=== PATIENT | female | born 1985 | race Caucasian/White ===

== ENCOUNTER 2017-07-14 12:41 | Inpatient (IN) ==
[2017-07-17] MEDS ORDERED: CARBOPROST 250 MCG/ML INJECTION IM PRN (16:10)
[2017-07-17] MEDS ORDERED: ACETAMINOPHEN 500 MG TABLET PO PRN (16:10)
[2017-07-17] MEDS ORDERED: SALINE FLUSH 10ml SYRINGE IV PRN (16:10)
[2017-07-17] MEDS ORDERED: TERBUTALINE 1 MG/ML VIAL SQ PRN (16:10)
[2017-07-17] MEDS ORDERED: METHYLERGONOVINE 0.2 MG/ML INJECTION IM PRN (16:10)
[2017-07-17] MEDS ORDERED: MAG-AL + SIM ORAL LIQUID 30ml PO PRN (16:10)
[2017-07-17] MEDS ORDERED: CALCIUM CARBONATE Chewable 500mg TABLET PO PRN (16:10)
[2017-07-17] MEDS ORDERED: DINOPROSTONE 10 MG VAGINAL INSERT VG ONE (16:10)
[2017-07-17] MEDS ORDERED: LIDOCAINE 1% (10mg/ml) 2mL INJ PF SDV ID PRN (16:10)
--- OUTSIDE RECORDS SUMMARY | 2017-07-17 16:11 | External Medical Summary | Clinical Summary ---
:1985 Author Organization [facility] Address [address] [address] Care Team Providers Name Role Phone Chelsy Escalona LILIA Primary Care Provider Allergies No Known Allergies Current Medications Prescription Sig. Disp. Refills Start Date End Date Status hydrocodone-acetaminoph Take 1 tablet by Active en (LORTAB) 5-500 MG mouth every 6 per tabletIndications: (six) hours as Pain needed. Indications: Pain Ondansetron 4 MG FILM Take 4 mg by 10 tablet 1 02/14/2011 Active mouth 3 (three) times daily. .Verify Clinic Meds verify clinic 0 09/04/2012 Active (MEDICATION LIST NOT meds IMPORTED) multivitamin Take 1 tablet by Active ( PLUS) 27-1 MG mouth daily. TABS Active Problems Problem Noted Date 03/25/2017 Currently Estimated Date of Delivery Comments Yes 07/04/2017 Based on Other Basis Encounters Date Type Specialty Care Team Description 06/10/2017 Hospital Encounter Eyal Salas MD from Last 3 Months Family History Medical History Relation Name Comments Other Other Mother - DM Other Other Father - DM Relation Name Status Comments Father Alive Mother Alive Other Other Social History Tobacco Use Types Packs/Day Years Used Date Never Smoker Smokeless Tobacco: Never Used Alcohol Use Drinks/Week oz/Week Comments No Currently Estimated Date of Delivery Comments Yes 07/04/2017 Based on Other Basis Sex Assigned at Date Recorded Not on file Last Filed Vital Signs Vital Sign Reading Time Taken Blood Pressure 103/65 03/25/2017 6:46 PM INSULATION MANAGER Pulse 102 03/25/2017 6:46 PM INSULATION MANAGER Temperature 37.2 C (98.9 F) 03/25/2017 6:46 PM INSULATION MANAGER Respiratory Rate 18 03/25/2017 6:46 PM INSULATION MANAGER Oxygen Saturation 100% 03/25/2017 6:46 PM INSULATION MANAGER Inhaled Oxygen Concentration - - Weight 59 kg (130 lb) 03/25/2017 6:49 PM INSULATION MANAGER Height 144.8 cm (4' 9") 03/25/2017 6:49 PM INSULATION MANAGER Body Mass Index 28.13 03/25/2017 6:49 PM INSULATION MANAGER Plan of Treatment Health Maintenance Due Date Last Done Comments Varicella Vaccines (1 of 2 - 2 Dose Adolescent Series) 01/01/1997 DTaP,Tdap,and Td Vaccines (1 - Tdap) 01/01/2003 CERVICAL CANCER SCREENING 01/01/2005 Influenza Vaccine (Season Ended) 2017 01/30/2010 Results Not on filefrom Last 3 Months
--- OUTSIDE RECORDS SUMMARY | 2017-07-17 16:12 | External Medical Summary | Encounter Summary ---
:1985 Author Organization [facility] Address [address] [place] [address] Care Team Providers Name Role Phone Chelsy Escalona LILIA Primary Care Provider Reason for Visit Auth/Cert Status Reason Specialty Diagnoses / Procedures Referred By Contact Referred To Contact Diagnoses EDC 0517 severe cramping Encounter Details Date Type Department Care Team Description 06/10/2017 Hospital Encounter [facility] Eyal Salas MD [address] [id number] [place] [address] [place], [place] [id number] Social History Tobacco Use Types Packs/Day Years Used Date Never Smoker Smokeless Tobacco: Never Used Alcohol Use Drinks/Week oz/Week Comments No Sex Assigned at Date Recorded Not on file as of this encounter Medications at Time of Discharge Medication Sig. Disp. Refills Start Date End Date .Verify Clinic Meds verify clinic meds 0 09/04/2012 (MEDICATION LIST NOT IMPORTED) hydrocodone-acetaminophen Take 1 tablet by (LORTAB) 5-500 MG per mouth every 6 (six) tabletIndications: Pain hours as needed. Indications: Pain Ondansetron 4 MG FILM Take 4 mg by mouth 3 10 tablet 1 02/14/2011 (three) times daily. multivitamin Take 1 tablet by ( PLUS) 27-1 MG mouth daily. TABS as of this encounter Plan of Treatment Not on fileas of this encounter Visit Diagnoses Not on filein this encounter Admitting Diagnoses Diagnosis EDC 0517 severe cramping
--- OUTSIDE RECORDS SUMMARY | 2017-07-17 16:12 | External Medical Summary | Clinical Summary ---
:1985 Author Organization [facility] Address [address] [place] [address] Care Team Providers Name Role Phone Chelsy Escalona Primary Care Provider Juancho Crowe MD Unavailable Judy Carlson MD Unavailable Unavailable Hallie Ramos MD Unavailable Source Comments Some departments are not documenting in the electronic medical record. If you do not see the information that you expected, contact Release of Information in the Health Information Management department at [phone] for further assistance in locating additional records.[facility] Allergies No Known Allergies Current Medications Prescription Sig. Disp. Refills Start Date End Date Status MAG HYDROX/AL HYDROX/SIMETH Take by mouth. Active (MAALOX PO) OMEPRAZOLE MAGNESIUM Take by mouth. Active (PRILOSEC OTC PO) ACETAMINOPHEN (TYLENOL PO) Take 2 Tabs by Active mouth. Social History Tobacco Use Types Packs/Day Years Used Date Former Smoker Smokeless Tobacco: Never Used Alcohol Use Drinks/Week oz/Week Comments No Sex Assigned at Date Recorded Not on file Last Filed Vital Signs Vital Sign Reading Time Taken Blood Pressure 98/62 07/10/2011 3:07 PM CDT Pulse 70 07/10/2011 3:00 PM CDT Temperature 37.1 C (98.8 F) 07/10/2011 1:15 PM CDT Respiratory Rate - - Oxygen Saturation 100% 07/10/2011 3:07 PM CDT Inhaled Oxygen Concentration - - Weight 57.2 kg (126 lb) 07/10/2011 1:19 PM CDT Height 147.3 cm (4' 10") 07/10/2011 1:19 PM CDT Body Mass Index 26.33 07/10/2011 1:19 PM CDT Plan of Treatment Health Maintenance Due Date Last Done Comments PHYSICAL (COMPREHENSIVE) EXAM 01/01/1991 PERTUSSIS VACCINE 01/01/1995 HIV SCREENING 01/01/1999 TETANUS VACCINE 01/01/2001 CERVICAL CANCER SCREENING 01/01/2014 INFLUENZA VACCINE 12/15/2017
[2017-07-17] MEDS ORDERED: OXYTOCIN DRIP 30 UNIT/500 ML ML IV PRN (16:43)
[2017-07-17] MEDS: D5LR 1,000 ML IV PRN (17:22)
[2017-07-17] MEDS: LR 1,000 ML IV PRN ×2 (17:22→21:20)
[2017-07-17 17:37] VITALS: BMI 30.3
[2017-07-17] MEDS: BUTORPHANOL 2 MG/ML INJECTION IVP PRN (17:49)
[2017-07-18] MEDS ORDERED: ONDANSETRON 4 MG/2 ML INJECTION IVP PRN ×2 (00:13→05:27)
[2017-07-18] MEDS: LR 1,000 ML IV PRN ×2 (00:17→05:34)
[2017-07-18] MEDS: D5LR 1,000 ML IV PRN (01:58)
[2017-07-18] MEDS: BUTORPHANOL 2 MG/ML INJECTION IVP PRN (01:59)
--- NOTE | 2017-07-18 05:20 | Anesthesia Preoperative Report ---
Anesthesia Epidural/Spinal Rec - Date and Time Date: 07/18/17 Preoperative Diagnosis: Active Labor Procedure: Labor Epidural Plan: Epidural - Vital Signs Vital Signs: Respiratory Rate 18 07/17/17 17:49 /Para: P:0 Heart Rate: 125 Height and Weight: 57 inches - Medictaions & Allergies Inpatient Medications: Current Medications Acetaminophen (Tylenol 500 Mg) 500 - 1,000 mg PO Q4H PRN PRN Reason: Pain Al Hydroxide/Mg Hydroxide (Maalox Plus) 30 ml PO Q3H PRN PRN Reason: Indigestion Butorphanol Tartrate (Stadol Inj) 1 mg IVP Q4H PRN Last Admin: 07/18/17 01:59 Dose: 1 mg Calcium Carbonate (Tums) 500 - 1,000 mg PO Q2H PRN PRN Reason: Indigestion Carboprost Tromethamine (Hemabate) 250 mcg IM O PRN PRN Reason: .Downtime Lactated Ringer's (Lactated Ringers) 1,000 mls @ 999 mls/hr IV .Q1H1M PRN Last Admin: 07/18/17 00:17 Dose: 999 mls/hr Dextrose/Lactated Ringer's (Dextrose 5%-Lactated Ringers) 1,000 mls @ 125 mls/ hr IV .Q8H PRN PRN Reason: Labor Last Admin: 07/18/17 01:58 Dose: 125 mls/hr Oxytocin (Pitocin Drip) 30 unit in 500 mls @ 2 mls/hr IV .Q24H PRN; Protocol PRN Reason: Induction/Augmentation Last Admin: 07/17/17 17:22 Dose: 2 mls/hr Lidocaine HCl (Xylocaine-Mpf 1% Vial) 0.2 mg ID O PRN PRN Reason: IV Start Methylergonovine Maleate (Methergine) 0.2 mg IM O PRN Misoprostol (Cytotec) 800 mcg DE ONCE PRN Ondansetron HCl (Zofran) 4 mg IVP Q4H PRN PRN Reason: Nausea &/or vomiting Last Admin: 07/18/17 00:17 Dose: 4 mg Allergies/Adverse Reactions: Allergies Allergy/AdvReac Type Severity Reaction Status Date / Time latex Allergy Mild Rash Verified 07/01/17 15:16 - Home Medications Home Medications: Home Medications Medication Instructions Recorded Confirmed Type Pantoprazole Tab 1 tab PO DAILY 03/29/17 History Vits #93/Iron Fum/FA 1 each PO 03/29/17 History [ Formula Tablet] - Medical History Other History: Reports: Now - Surgical History GI Surgery/Treatments: Reports: Cholecystectomy, Other (exploratory scope done ) Anesthesia Reactions: None Hx Family Anesthesia Reaction: No History of Motion Sickness: No - Social History Smoking Status: Never smoker Second Hand Exposure: No Alcohol Intake Frequency: does not drink Hx Chewing Tobacco Use: No - Pertinent Findings Lab Data: CBC and BMP 07/17/17 16:27 - Physical Exam Respiratory Exam: lungs clear Cardiovascular Exam: regular rate and rhythm - Airway Assessment Mallampati Score: II TMD: 3 Fingerbreadths Neck Extension: good Overall Assessment: no airway concerns - ASA ASA Score: 2 - Discussion Discussion: Discussed risks/options/alternatives of anesthesia and questions answered. Patient consents. Nursing pain assessment noted. Anesthesia Discussion: spouse ( ) Attestation Statement: Prior to the delivery of any anesthetic medication, I examined the patient, developed the plan, obtained the patient's consent and discussed the risk and benefits of the procedure with the patient/guardian.
[2017-07-18] MEDS ORDERED: DiphenhydrAMINE 50 MG/ML INJECTION IVP PRN (05:27)
[2017-07-18] MEDS ORDERED: ROPIVACAINE 1% 10MG/ML INJ 200 MG, SUFentanil 50 MCG in NS 100 ML EPI PRN (05:27)
[2017-07-18] MEDS ORDERED: NALOXONE 0.4 MG/ML INJECTION IVP PRN (05:27)
[2017-07-18] MEDS ORDERED: AZITHROMYCIN IV 500 MG in NS 250ml 250 ML IV ONE (06:24)
[2017-07-18] MEDS ORDERED: CITRIC ACID/SODIUM CITRATE 30ml PO ONE (06:24)
[2017-07-18] MEDS ORDERED: FAMOTIDINE PB 20 MG/50 ML BAG IV ONE (06:24)
[2017-07-18] MEDS ORDERED: NOZIN NASAL SWAB NAS ONE (06:24)
[2017-07-18] MEDS ORDERED: CEFAZOLIN PREMIX (MC ONLY) 2 GM/50 ML BAG IV ONE (06:24)
[2017-07-18] MEDS ORDERED: LIDOCAINE 2%/EPI 1:200,000 20ml SDV PF ONE (06:46)
[2017-07-18] MEDS ORDERED: PHENYLEPHRINE INJ 10 MG/ML VIAL IV ONE (06:52)
[2017-07-18] MEDS ORDERED: SALINE FLUSH 10ml SYRINGE ONE (06:53)
[2017-07-18] MEDS ORDERED: ONDANSETRON 4 MG/2 ML INJECTION ONE (06:56)
[2017-07-18] MEDS ORDERED: MORPHINE SULFATE PF 5mg/10ml INJ (Duramorph) ONE (07:00)
[2017-07-18] MEDS: OXYTOCIN BOLUS BAG 30 UNIT/500 ML ML IV SCH ×2 (07:06→07:27)
[2017-07-18] MEDS ORDERED: MIDAZOLAM 2mg/2ml INJECTION ONE (07:12)
[2017-07-18] MEDS ORDERED: PROPOFOL 20 ML ONE (07:16)
[2017-07-18] MEDS ORDERED: MEASLES-MUMPS-RUBELLA VACCINE 0.5ml INJECTION SQ ONE (07:54)
[2017-07-18] MEDS ORDERED: SIMETHICONE 80 MG CHEWABLE TABLET PO PRN (07:54)
[2017-07-18] MEDS ORDERED: RHOPHYLAC - PHARMACY CONSULT MC ONE (07:54)
[2017-07-18] MEDS ORDERED: DiphenhydrAMINE 25 MG CAPSULE PO PRN (07:54)
[2017-07-18] MEDS ORDERED: HYDROCORTISONE 2.5% CREAM 30gm RECTALLY PRN (07:54)
--- NOTE | 2017-07-18 07:55 | Anesthesia Postoperative Note ---
- Date and Time Date: 07/18/17 Time: 07:54 - Status Patient Participated in Evaluation: Patient Participated in Person Vital Signs: Respiratory Rate 18 07/17/17 17:49 Respiratory Function: Airway Patent Cardiovascular Function: Regular Pulse Mental Status: Alert and Oriented Pain Intensity: 0 Hydration: IV Infusing Complications During Recover: None Apparent - Follow-Up Instructions Instructions: Per Surgeon
[2017-07-18] MEDS ORDERED: OXYTOCIN DRIP 30 UNIT/500 ML ML IV SCH (08:00)
[2017-07-18] MEDS: D5LR 1,000 ML IV SCH ×2 (09:32→13:47)
[2017-07-18] MEDS: IBUPROFEN 800 MG TABLET PO PRN ×2 (09:53→19:58)
[2017-07-18] MEDS: DOCUSATE CALCIUM 240 MG CAPSULE PO SCH (11:02)
[2017-07-18] MEDS: SIMETHICONE 80 MG CHEWABLE TABLET PO SCH ×3 (11:02→19:58)
--- NOTE | 2017-07-18 13:01 | Operative Note ---
DATE OF OPERATION 07/18/2017 PREOPERATIVE DIAGNOSIS 1. 32-year-old 1 at 40 weeks 4 days gestational age. 2. Arrest of dilation and descent. POSTOPERATIVE DIAGNOSIS 1. 32-year-old 1 at 40 weeks 4 days gestational age. 2. Arrest of dilation and descent. PROCEDURE Primary low transverse section. SURGEON Osiris Whitmore MD FRIT COATER Kurt Oliver MD ANESTHESIA Epidural by Luiz Alfonso, GABRIELLA COMPLICATIONS None EBL 700 mL FINDINGS Viable female infant, cephalic LOT position, clear fluids, Apgars 6/9, weight 3444 grams, name "[id number]". Normal-appearing uterus, tubes and ovaries. INDICATIONS The patient was brought in for Lopes bulb cervical ripening last evening due to being past her EDC. Her membranes were accidentally ruptured during the placement, so she was also started on Pitocin. At 10:00 p.m. last evening she was 5 cm and -2 station. She never progressed past that all night long. She finally received an epidural and had a Lopes catheter placed. After eight hours of not changing her cervix, she was consented for a . DESCRIPTION OF PROCEDURE The patient was taken to the operating room where her epidural was brought up to adequate surgical levels. She was prepared and draped in the normal sterile fashion. A Pfannenstiel skin incision was made and carried down to the fascia. The fascia was elevated and the underlying rectus muscles were dissected off. The peritoneum was entered bluntly. This was extended superiorly and inferiorly with good visualization of the bladder. The bladder blade was inserted. Bladder flap was created sharply and the bladder blade was reinserted. The lower uterine segment was incised transversely layer by layer with a scalpel and bluntly extended. The infant's head was delivered atraumatically. The nose and mouth were suctioned. The cord was clamped and cut. The infant was handed to Dr. Parrish who was asked to attend due to the unscheduled delivery and prolonged rupture of membranes. The placenta delivered spontaneously. The uterus was exteriorized and cleared of all clots and debris. The uterine incision was closed with running locked 0 Monocryl. Hemostasis was obtained on the serosal edges with the cautery. The bladder flap was closed with 3-0 Vicryl. The uterus was returned to the abdomen. The gutters were cleared of all clots and debris. The uterine incision was inspected one final time and still noted to be hemostatic. The peritoneum was closed with running 2-0 Vicryl. Hemostasis was obtained in the rectus muscles. The fascia was closed with running 0 Vicryl. Hemostasis was obtained in the subcutaneous tissue with the cautery. The skin was closed with 4-0 Vicryl in a subcuticular manner. Steri-Strips were placed. Sponge, sharp and instrument counts were correct. The patient tolerated the procedure well and was taken to the recovery room in good condition. EDWIN
[2017-07-18] MEDS ORDERED: RHO(D) IMMUNE GLOBULIN 300 MCG/2 ML INJECTION IVP ONE (18:11)
[2017-07-19] MEDS: D5LR 1,000 ML IV SCH ×2 (00:36→22:06)
[2017-07-19] MEDS: SIMETHICONE 80 MG CHEWABLE TABLET PO SCH ×4 (00:36→22:07)
[2017-07-19] MEDS: IBUPROFEN 800 MG TABLET PO PRN ×2 (10:01→21:40)
[2017-07-19] MEDS: HYDROCODONE/APAP 5mg/325mg TABLET PO PRN (10:01)
[2017-07-19] MEDS: DOCUSATE CALCIUM 240 MG CAPSULE PO SCH (10:02)
--- NOTE | 2017-07-19 10:18 | OB/GYN Progress Note ---
OB-Progress Note Free Text - Date Date: 07/19/17 - Progress Note Progress Note: POD #1 Doing well no c/o vss af continue current care path q&a-krb
[2017-07-19 22:01] VITALS: BP 114/69; RESP 16
[2017-07-20] MEDS: HYDROCODONE/APAP 5mg/325mg TABLET PO PRN ×2 (00:39→12:36)
[2017-07-20 07:46] VITALS: PULSE 88; TEMP 98.2; O2SAT 98
--- NOTE | 2017-07-20 10:57 | Progress Note ---
OB PP Progress Note Free Text - Date Date: 07/20/17 - Progress Note Progress Note: POD2 doing well vss af incision c/d/i doing well f/u this wk q&a-krb
[2017-07-20] MEDS: IBUPROFEN 800 MG TABLET PO PRN (12:36)
== END 2017-07-20 13:10 | disposition home or self-care (01) | DRG 765 ==
LOC: MC 07-17 16:04
PROVIDERS: ADMIT Obstetrics & Gynecology; ATTEND Obstetrics & Gynecology